=== PATIENT | female | born 1970 | race Caucasian/White ===

== ENCOUNTER 2018-09-25 18:01 | Emergency (ER) | payer BC, OTHER ==
[2018-09-25 18:22] VITALS: BP 158/92
[2018-09-25] MEDS ORDERED: Amoxicillin/Clavulanate TAB* 875 MG PO ONE (19:03)
--- NOTE | 2018-09-25 19:03 | UC ---
Bite Injury/Animal HPI - HPI Summary HPI Summary: lateral aspects of 4th finger of right hand skin avulsions from being scraped by a dogs tooth---would wash small amount of oozing blood (on Lovenox) - History of Current Complaint Chief Complaint: UCAbdominalPain Stated Complaint: DOG BITE Time Seen by Provider: 09/25/18 18:39 Hx Obtained From: Patient Hx Last Menstrual Period: 09/09; pt undergoing embryo transfer on Thursday ?: No Severity Currently: Mild Severity Initially: Mild Pain Intensity: 1 Pain Scale Used: 0-10 Numeric Onset/Duration: Sudden Onset Type of Bite: Pet Has Animal Been Immunized?: Yes Character: Abrasion/Laceration Aggravating Factor(s): Nothing Alleviating Factor(s): Nothing Associated Signs And Symptoms: Positive: Negative Hx of Bite: Provoked by: - attempting to give him a pill Animal Available for Observation: Yes Animal Control Notified: Yes - Allergies/Home Medications Allergies/Adverse Reactions: Allergies Allergy/AdvReac Type Severity Reaction Status Date / Time No Known Allergies Allergy Verified 09/25/18 18:22 Home Medications: Home Medications Aspirin 81 mg PO 09/25/18 [History] Estradiol [Estrace] 09/25/18 [History] Famotidine [Pepcid] 20 mg PO 09/25/18 [History] Labetalol TAB* [Trandate TAB*] 09/25/18 [History] Levofloxacin TAB* [Levaquin 500 Tab*] 09/25/18 [History] Levothyroxine Sodium [Synthroid] 100 mcg PO 09/25/18 [History] Loratadine [Claritin] 09/25/18 [History] Pnv No.95/Ferrous Fum/Folic AC [ Vitamin Tablet] 09/25/18 [History] Prasterone (Dhea)/Calcium Carb [Dhea 50 mg Tablet] 09/25/18 [History] Progesterone, Micronized [Endometrin] 100 mg 09/25/18 [History] Tacrolimus [Astagraf XL 0.5 MG-] 0.5 mg PO DAILY 09/25/18 [History Confirmed ] predniSONE [Prednisone 5 MG TAB] 10 mg 09/25/18 [History] proGESTerone [Progesterone] 50 mg IM 09/25/18 [History] PMH/Surg Hx/FS Hx/Imm Hx Previously Healthy: No - fertility treatment Endocrine History: Thyroid Disease - Surgical History Surgical History: None - Family History Known Family History: Positive: None - Social History Occupation: Employed Full-time Lives: With Family Alcohol Use: Occasionally Substance Use Type: None Smoking Status (MU): Never Smoked Tobacco Review of Systems All Other Systems Reviewed And Are Negative: Yes Constitutional: Positive: Negative Skin: Positive: Other - small skin abrasion with avulasion lateral aspect og right 4th finger distally Eyes: Positive: Negative ENT: Positive: Negative Respiratory: Positive: Negative Cardiovascular: Positive: Negative Gastrointestinal: Positive: Negative Genitourinary: Positive: Negative Motor: Positive: Negative Neurovascular: Positive: Negative Musculoskeletal: Positive: Negative Neurological: Positive: Negative Psychological: Positive: Negative Is Patient Immunocompromised?: No Physical Exam Triage Information Reviewed: Yes Appearance: Well-Appearing, No Pain Distress, Well-Nourished Vital Signs: Initial Vital Signs Temp 98.5 F 09/25/18 18:13 Pulse 92 09/25/18 18:13 Resp 16 09/25/18 18:13 BP 158/92 09/25/18 18:13 Pulse Ox 97 09/25/18 18:13 Vital Signs Reviewed: Yes Eye Exam: Normal Eyes: Positive: Conjunctiva Clear ENT Exam: Normal ENT: Positive: Normal ENT inspection, Hearing grossly normal. Negative: Trismus , Muffled voice, Hoarse voice Dental Exam: Normal Neck exam: Normal Neck: Positive: Supple, Nontender, No Lymphadenopathy Respiratory Exam: Normal Respiratory: Positive: Chest non-tender, No respiratory distress, No accessory muscle use Cardiovascular Exam: Normal Cardiovascular: Positive: RRR, Pulses Normal, Brisk Capillary Refill Musculoskeletal Exam: Normal Musculoskeletal: Positive: Strength Intact, ROM Intact, No Edema Neurological Exam: Normal Neurological: Positive: Alert, Muscle Tone Normal Psychological Exam: Normal Skin: Positive: Other - avulsion and abrasion lateral aspect of 4th right finger Re-Evaluation - Re-Evaluation First Eval Change: Improved - steri strip and direct pressure controlled bleeding Bite Injury Course/Dx - Course Course Of Treatment: fertility clinic returned call ok for patient to take augmentin patient will wash daily follow with pcp and fertility clinic - Differential Dx/Diagnosis Provider Diagnosis: Dog bite of finger Discharge - Sign-Out/Discharge Documenting (check all that apply): Patient Departure All imaging exams completed and their final reports reviewed: No Studies - Discharge Plan Condition: Stable Disposition: HOME Prescriptions: Amoxicillin/Clavulanate TAB* [Augmentin TAB 875*] 875 mg PO BID #20 tab Patient Education Materials: Animal Bite (ED) Referrals: No Primary Care Phys,NOPCP [Primary Care Provider] - Additional Instructions: follow with your doctor and use antibiotics if approved by the fertility provider - Billing Disposition and Condition Condition: STABLE Disposition: Home
== END 2018-09-25 19:15 | disposition home or self-care (01) ==
LOC: UCEAST 18:01
DX: S61.254A Open bite of right ring finger without damage to nail, initial encounter (principal); Z79.82 Long term (current) use of aspirin; W54.0XXA Bitten by dog, initial encounter; Y92.9 Unspecified place or not applicable
CPT/HCPCS: 99202; A9270-GY; G0463

== ENCOUNTER 2019-01-09 16:33 | Emergency (ER) | payer BC, OTHER ==
--- OUTSIDE RECORDS SUMMARY | 2019-01-09 16:45 | XMS REPORT | Continuity of Care Document ---
:1970 External Reference #:[id number] Author Name CLAIRE Gonsales PNP Address [address] [address] [place] [address] Care Team Providers Name Role Phone Alisha Land ANP-BC Primary Care Physician Unavailable Payers Date Identification Numbers Payment Provider Subscriber Policy Number: [id number] [facility] Plan Minnie Gautam PayID: [id number] [address] [place] [address] Problems Active Problems Provider Date Essential hypertension CLAIRE Gonsales, PNP Onset: 06/28/2018 Polycystic ovaries CLAIRE Gonsales, PNP Onset: 06/28/2018 Female infertility CLAIRE Gonsales, AMNA Onset: 06/28/2018 Vitamin D deficiency CLAIRE Gonsales, PNP Onset: 06/28/2018 Sprain of lateral collateral ligament of CLAIRE Gonsales, AMNA Onset: 06/28 right knee, subsequent encounter Family History Date Family Member(s) Observation Comments Father Heart Disease Mother due to Lung Cancer () Social History Type Date Description Comments Sex Unknown Marital Status Legal Status: Lives With Spouse Smoke-Free Home is smoke-free Pets 1 dog Pets Horse Occupation Senior Sustainability Consultant ETOH Use Occasionally consumes alcohol Tobacco Use Start: Unknown Patient has never smoked Recreational Drug Use Denies Drug Use Allergies, Adverse Reactions, Alerts Description No Known Drug Allergies Medications Active Medications SIG Qnty Indications Ordering Provider Date Azithromycin 1 by mouth 5tabs J06.9 Alisha Land, 12/06/2018 500mg every day AMNA RANGEL Tablets Levothyroxine Sodium 1 by mouth 90tabs Alisha Land, 06/28/2018 every day AMNA RANGEL 125mcg Tablets Labetalol HCL take one tablet 180tabs Alisha Land, 04/17/2018 200mg by mouth twice ANP-BC, PNP Tablets a day Tylenol Extra Strength 2 tab by mouth Unknown every 6 hours 500mg Tablets as needed Coricidin HBP 2 by mouth Unknown 10-325-2mg every day as Tablets needed Robitussin Nightime 20 ml by mouth Unknown Coughdm Maximum every 6 hours Strength as needed 3.125-7.5mg/5ML Liquid History Medications Metformin HCL ER 3 by mouth every PM 90tabs Alisha Land, 06/28/2018 - ANP-BC, PNP 12/06/2018 500mg Tablets ER 24HR Prednisone 1 by mouth bid 30tabs Alisha Land, 06/28/2018 - 10mg ANP-BC, PNP 12/06/2018 Tablets Lovenox SC daily Alisha Land, 06/28/2018 - 30mg/0.3ML ANP-BC, PNP 12/06/2018 Solution Aspirin Adult Low 1 by mouth every day 90tabs Alisha Land, 06/28/2018 - Dose ANP-BC, PNP 12/06/[address] Pulido 2mg intravaginally bid Alisha Land, 06/28/2018 - 2mg Tablets ANP-BC, PNP 12/06/2018 4.5 MG 1 po hs Alisha Land, 06/28/2018 - Tab ANP-BC, PNP 06/28/2018 Naltrexone daily Alisha Land, 06/28/2018 - 4.5mg ANP-BC, PNP 12/06/2018 Omnitrope 0.33 mg SC daily Alisha Land, 06/28/2018 - 5mg/1.5ML ANP-BC, PNP 12/06/2018 Solution Claritin 1 by mouth every day 30tabs Alisha Land, 06/28/2018 - 10mg ANP-BC, PNP 12/06/2018 Tablets Vital Signs Date Vital Result Comment 12/06/2018 8:03am BP Systolic 128 mmHg BP Diastolic 70 mmHg Heart Rate 92 /min Body Temperature 102.8 F Respiratory Rate 16 /min O2 % BldC Oximetry 98 % Weight 207.50 lb Weight 94.122 kg Height 67 inches 5'7" BMI (Body Mass Index) 32.5 kg/m2 BSA (Body Surface Area) 2.05 m2 06/28/2018 8:10am BP Systolic 126 mmHg BP Diastolic 84 mmHg Heart Rate 74 /min Body Temperature 98.5 F Respiratory Rate 16 /min O2 % BldC Oximetry 96 % Weight 212.38 lb Weight 96.333 kg Height 67 inches 5'7" BMI (Body Mass Index) 33.3 kg/m2 BSA (Body Surface Area) 2.07 m2 Results Test Date Facility Test Result H/L Range Note Xray 12/07/2018 [facility] Radiology MRI Lower Ext <pending> [address] [facility] [address] [place] [address] Contrast RT [phone] Laboratory test 12/06/2018 In Office Inhouse Rapid Negative finding Strep Procedures Date Code Description Status 06/28/2018 49789 Brief Emotional/Behav Assessment W/ Scoring Doc Per Completed Standard Inst Encounters Type Date Location Provider Dx Diagnosis Office Visit 12/06/2018 [facility] Alisha Land, J06.9 Acute upper 8:00a Center CLAIRE, PNP respiratory infection, unspecified J02.9 Acute pharyngitis, unspecified R50.9 Fever, unspecified S83.421D Sprain of lateral collateral ligament of right knee, subs M25.561 Pain in right knee Plan of Treatment Future Appointment(s):01/05/2019 11:00 am - CLAIRE Gonsales, PNP at [facility]12/06/2018 - CLAIRE Gonsales, PNPJ06.9 Acute upper respiratory infection, unspecifiedNew Medication:Azithromycin 500 mg - 1 by mouth every dayComments:Based on s/s, anterior chest heaviness, productive cough, fever, SOB, possibly pneumonia, will send for CXRWill notify pt when results available.Start with Zithromax 500 mg daily x 5 days, may need to extend that depending on CXR Out of work 12/08-12/10, encouraged deep breathing and coughing at least 3x dayFU 1 parhrK56.9 Acute pharyngitis, ohmsmawplzwI71.9 Fever, ffoedejcayyX79.421D Sprain of lateral collateral ligament of right knee, subsequFollow up:FU 1 lbrqiK14.561 Pain in right knee
--- OUTSIDE RECORDS SUMMARY | 2019-01-09 16:45 | XMS REPORT | Continuity of Care Document ---
:1970 External Reference #:[id number] Author Name CLAIRE Gonsales PNP Address [address] [address] [place] [address] Care Team Providers Name Role Phone Alisha Land ANP-BC Primary Care Physician Unavailable Payers Date Identification Numbers Payment Provider Subscriber Policy Number: [id number] [facility] Plan Minnie Gautam PayID: [id number] [address] [place] [address] Problems Active Problems Provider Date Essential hypertension CLAIRE Gonsales, PNP Onset: 06/28/2018 Polycystic ovaries CLAIRE oGnsales, PNP Onset: 06/28/2018 Female infertility CLAIRE Gonsales, AMNA Onset: 06/28/2018 Vitamin D deficiency CLAIRE Gonsales, PNP Onset: 06/28/2018 Sprain of lateral collateral ligament of CLAIRE Gonsales, PNP Onset: 06/28 right knee, subsequent encounter Family History Date Family Member(s) Observation Comments Father Heart Disease Mother due to Lung Cancer () Social History Type Date Description Comments Sex Unknown Marital Status Legal Status: Lives With Spouse Smoke-Free Home is smoke-free Pets 1 dog Pets Horse 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 ETOH Use Occasionally consumes alcohol Tobacco Use Start: Unknown Patient has never smoked Recreational Drug Use Denies Drug Use Allergies, Adverse Reactions, Alerts Description No Known Drug Allergies Medications Active Medications SIG Qnty Indications Ordering Date Provider Levocetirizine 1 by mouth 30tabs J30.9 Alisha Land, 01/05/2019 Dihydrochloride every day AMNA RANGEL 5mg Tablets Levothyroxine Sodium 1 by mouth 90tabs Alisha Land, 06/28/2018 125mcg every day ANP-BC, PNP Tablets Labetalol HCL take one 180tabs Alisha Land, 04/17/2018 200mg Tablets [facility] mouth twice a day Tylenol Extra Strength 2 tab by mouth Unknown 500mg every 6 hours Tablets as needed Benadryl Allergy 2 by mouth as Unknown 25mg Tablets needed History Medications Azithromycin 1 by mouth every day 5tabs J06.9 Alisha Land, 12/06/2018 - 500mg [facility], PNP 01/05/2019 Tablets Claritin 1 by mouth every day 30tabs Alisha Land, 06/28/2018 - 10mg Tablets [facility]-, PNP 12/06/2018 Omnitrope 0.33 mg SC daily Alisha Land, 06/28/2018 - 5mg/1.5ML [facility], PNP 12/06/2018 Solution Naltrexone daily Alisha Land, 06/28/2018 - 4.5mg [facility], PNP 12/06/2018 4.5 MG 1 po hs Alisha Land, 06/28/2018 - Tab [facility], PNP 06/28/2018 Estrace 2mg intravaginally Alisha Land, 06/28/2018 - 2mg Tablets bid [facility], PNP 12/06/2018 Aspirin Adult Low 1 by mouth every day 90tabs Alisha Land, 06/28/2018 - Dose [facility], PNP 12/06/[address] [place] daily Alisha Land, 06/28/2018 - 30mg/0.3ML [facility], PNP 12/06/2018 Solution Prednisone 1 by mouth bid 30tabs Alisha Land, 06/28/2018 - 10mg [facility], PNP 12/06/2018 Tablets Metformin HCL ER 3 by mouth every PM 90tabs Alisha Land, 06/28/2018 - ANP-BC, PNP 12/06/2018 500mg Tablets ER 24HR Coricidin HBP 2 by mouth every day Unknown - as needed 01/05/2019 10-325-2mg Tablets Robitussin Nightime 20 ml by mouth every Unknown - Coughdm Maximum 6 hours as needed 01/05/2019 Strength 3.125-7.5mg/5ML Liquid Vital Signs Date Vital Result Comment 01/05/2019 11:05am BP Systolic 118 mmHg BP Diastolic 74 mmHg Heart Rate 84 /min Body Temperature 98.2 F Respiratory Rate 16 /min O2 % BldC Oximetry 98 % Weight 206.12 lb Weight 93.498 kg Height 67 inches 5'7" BMI (Body Mass Index) 32.3 kg/m2 BSA (Body Surface Area) 2.05 m2 12/06/2018 8:03am BP Systolic 128 mmHg BP [...] Date Facility Test Result H/L Range Note Laboratory test 12/06/2018 In Office Inhouse Rapid Negative finding Strep Procedures Date Code Description Status 06/28/2018 85992 Brief Emotional/Behav Assessment W/ Scoring Doc Per Completed Standard Inst Encounters Type Date Location Provider Dx Diagnosis Office Visit 01/05/2019 [facility] Alisha Land, J15.8 Pneumonia due to 11:00a [place] ANP-BC, PNP other specified bacteria S83.421D Sprain of lateral collateral ligament of right knee, subs S83.203D Oth tear of unsp meniscus, current injury, right knee, subs J30.9 Allergic rhinitis, unspecified Plan of Treatment 01/05/2019 - CLAIRE Gonsales, PNPJ15.8 Pneumonia due to other specified bacteriaComments:Pneumonia resolvingFollow up:FU 6 months, will callS83.421D Sprain of lateral collateral ligament of right knee, subsequent qgamywfcnS44.203D Other tear of unspecified meniscus, current injury, right knee , subsequent encounterComments:Referred to Dr Joe MEDINA, awaiting aptJ30.9 Allergic rhinitis, unspecifiedNew Medication:Levocetirizine Dihydrochloride 5 mg - 1 by mouth every day
[2019-01-09 16:56] VITALS: BP 146/86
--- NOTE | 2019-01-09 17:02 | UC ---
Eye Complaint HPI - HPI Summary HPI Summary: Pt has URI symptoms which she caught from her . Today she has a red left eye with pus drainage. No visual changes. - History of Current Complaint Chief Complaint: UCGeneralIllness Stated Complaint: L EYE COMP/COLD SYMP Time Seen by Provider: 01/09/19 16:43 Hx Obtained From: Patient Hx Last Menstrual Period: unknown - irregular cycles ?: No Onset/Duration: Gradual Onset Timing: Constant Severity Initially: Mild Severity Currently: Mild Pain Intensity: 0 Location of Injury: Other - No injury Aggravating Factor(s): Nothing Alleviating Factor(s): Nothing Associated Signs And Symptoms: Positive: Drainage (Purulent) - Allergies/Home Medications Allergies/Adverse Reactions: Allergies Allergy/AdvReac Type Severity Reaction Status Date / Time No Known Allergies Allergy Verified 01/09/19 16:57 PMH/Surg Hx/FS Hx/Imm Hx Previously Healthy: Yes Cardiovascular History: Hypertension - Surgical History Surgical History: None - Family History Known Family History: Positive: None - Social History Alcohol Use: Occasionally Substance Use Type: None Smoking Status (MU): Never Smoked Tobacco Review of Systems All Other Systems Reviewed And Are Negative: Yes Eyes: Positive: Drainage, Eye Redness - Left eye ENT: Positive: Nasal Discharge - Mild runny nose Respiratory: Positive: Negative - Just recently had pneumonia which resolved with treatment. Is Patient Immunocompromised?: No Physical Exam Triage Information Reviewed: Yes Appearance: Well-Appearing, No Pain Distress, Well-Nourished Vital Signs: Initial Vital Signs Temp 97.7 F 01/09/19 16:47 Pulse 99 01/09/19 16:47 Resp 16 01/09/19 16:47 BP 146/86 01/09/19 16:47 Pulse Ox 100 01/09/19 16:47 Vital Signs Reviewed: Yes Eyes: Positive: Conjunctiva Inflamed, Discharge - Left sclera and conjunctiva injected with yellow pus drainage present. EOMI, PERRLA ENT: Positive: Hearing grossly normal, Pharynx normal, Nasal drainage, TMs normal, Uvula midline Neck: Positive: Supple, Nontender, No Lymphadenopathy Respiratory: Positive: Lungs clear, Normal breath sounds, No respiratory distress, No accessory muscle use Cardiovascular: Positive: RRR, No Murmur, Pulses Normal, Brisk Capillary Refill Musculoskeletal Exam: Normal Neurological Exam: Normal Psychological Exam: Normal Skin Exam: Normal Eye Complaint Course/Dx - Course Course Of Treatment: Comfortable here - Differential Dx/Diagnosis Provider Diagnosis: Left conjunctivitis, URI (upper respiratory infection) Discharge - Sign-Out/Discharge Documenting (check all that apply): Patient Departure All imaging exams completed and their final reports reviewed: No Studies - Discharge Plan Condition: Fair Disposition: HOME Prescriptions: Tobramycin 0.3% OPHTH.ANANT* 1 drop LEFT EYE Q4H 7 Days #1 btl Patient Education Materials: Upper Respiratory Infection (DC), Conjunctivitis ( ED) Referrals: Non Staff,Doctor [Primary Care Provider] - Additional Instructions: Follow up with an ophthamoloigst if no improvement in 2-3 days. Good handwashing. - Billing Disposition and Condition Condition: FAIR Disposition: Home - Attestation Statements Provider Attestation: I was available for consult. This patient was seen by the TIMO. The patient was not presented to , seen by or examined by wy -Osmany Delgado MD
== END 2019-01-09 17:13 | disposition home or self-care (01) ==
LOC: UCCORT 16:33
DX: H10.9 Unspecified conjunctivitis (principal); J06.9 Acute upper respiratory infection, unspecified; I10 Essential (primary) hypertension
CPT/HCPCS: 99212; G0463

== ENCOUNTER 2020-11-16 20:42 | Observation (INO) ==
[2020-11-16] MEDS ORDERED: NS 0.9% 1000 ml BAG 1,000 ML IV ONE (23:57)
[2020-11-16] MEDS ORDERED: Ondansetron 4 mg VIAL 2 MG/ML 2 ml VIAL IV ONE (23:57)
[2020-11-17 00:27] LABS: ABS Basophils 0.1 10^3/ul (0-0.2); ABS Lymphocytes 1.1 10^3/ul (1.0-4.8); ABS Monocytes 1.4 10^3/ul (0-0.8); Hematocrit 41 % (35-47); Hemoglobin 14.1 g/dL (12.0-16.0); Lymphocyte % 6.4 %; Mean Corpuscular HGB Conc 35 g/dL (31-36); Mean Corpuscular Hemoglobin 32 pg (27-31); Mean Corpuscular Volume 92 fL (80-97); Mean Platelet Volume 8.5 fL (7.4-10.4); Platelet Count 259 10^3/uL (150-450); Red Blood Count 4.45 10^6 /uL (3.70-4.87); Red Cell Distribution Width 13 % (10-15); White Blood Count 17.5 10^3/uL (3.5-10.8)
[2020-11-17 00:40] LABS: Urine Appearance Clear; Urine Bilirubin Negative (Negative); Urine Blood 2+ (Negative); Urine Color Amber; Urine Glucose Negative (Negative); Urine Ketones 2+ (Negative); Urine Nitrite Negative (Negative); Urine Protein 1+(30 mg/dL) (Negative); Urine Specific Gravity 1.025 (1.002-1.030); Urine Urobilinogen Negative (Negative)
[2020-11-17 00:45] LABS: Albumin 4.2 g/dL (3.2-5.2); Albumin/Globulin Ratio 1.4 (1-3); C Reactive Protein 100.92 mg/L (<8.01); EGFR African American 96.8 (>60); Globulin 2.9 g/dL (2-4); Magnesium 1.7 mg/dL (1.9-2.7); Potassium 3.7 mmol/L (3.5-5.0); Total Bilirubin 1.1 mg/dL (0.2-1.0); Total Protein 7.1 g/dL (6.4-8.9)
[2020-11-17 00:52] LABS: HCG Pregnancy 3.62 mIU/mL; Urine Bacteria Absent (Absent); Urine Red Blood Cell Trace(0-2/hpf) (Absent); Urine Squamous Epithelial Cell Present (Absent); Urine White Blood Cell Trace(0-5/hpf) (Absent)
[2020-11-17] MEDS ORDERED: Iohexol 300 (CONTRAST) 10 ML SDV IV ONE (02:23)
[2020-11-17] MEDS ORDERED: Piperacillin/Tazobac ADVAN 3.375 GM in NS 0.9% 100 ml BAG 100 ML IV ONE (03:45)
[2020-11-17] MEDS ORDERED: Ondansetron 4 mg VIAL 2 MG/ML 2 ml VIAL IV PRN (04:59)
[2020-11-17] MEDS ORDERED: NS 0.45% 1000 ml BAG 1,000 ML IV SCH (06:00)
[2020-11-17] MEDS ORDERED: Propofol 10 MG/ML 20 ML BTL ONE (07:40)
[2020-11-17] MEDS ORDERED: Lidocaine 2% PF 5 ML VIAL ONE (07:40)
[2020-11-17] MEDS ORDERED: fentaNYL 100 mcg/2 ml 50 MCG/ML VIAL ONE (07:41)
[2020-11-17] MEDS ORDERED: Rocuronium 50 mg VIAL 10 mg/ml 5 ml VIAL (50 mg) ONE (07:41)
[2020-11-17] MEDS ORDERED: Midazolam 2 mg/2 ml VIAL 1 mg/ml 2 ml VIAL (2 mg) ONE (07:41)
[2020-11-17] MEDS ORDERED: Succinylcholine 200 mg VIAL 20 mg/ml 10 ml VIAL (200 mg) ONE (07:41)
[2020-11-17] MEDS ORDERED: Bupivacaine 0.25% EPI 200,000 30 ML SDV ONE (08:05)
[2020-11-17] MEDS ORDERED: fentaNYL 100 mcg/2 ml 50 MCG/ML VIAL IV PRN (09:07)
[2020-11-17] MEDS ORDERED: Naloxone 0.4 mg VIAL 0.4 mg/ml 1 ml VIAL IV PRN (09:07)
[2020-11-17] MEDS ORDERED: DiMENhydriNATE IV 50 mg/ml 1 ml VIAL IV PUSH PRN (09:07)
[2020-11-17] MEDS ORDERED: Ondansetron 4 mg VIAL 2 MG/ML 2 ml VIAL ONE (09:09)
[2020-11-17] MEDS ORDERED: Dexamethasone IV 4 MG/ML VIAL 1 ml VIAL ONE (09:09)
[2020-11-17] MEDS ORDERED: ACETAMINOPHEN 1 GM/100 ML ONE (09:09)
[2020-11-17] MEDS: Piperacillin/Tazobactam VIAL 3.375 GM in NS 0.9% 100 ml BAG 100 ML IVPB SCH ×3 (10:47→23:31)
[2020-11-17] MEDS ORDERED: HYDROmorphone 0.5 MG/0.5 ML SYRINGE IV SLOW PU PRN (13:38)
[2020-11-18 06:48] LABS: ABS Lymphocytes 1.7 10^3/ul (1.0-4.8); ABS Monocytes 1.1 10^3/ul (0-0.8); Eosinophil % 0.1 %; Hematocrit 34 % (35-47); Hemoglobin 11.7 g/dL (12.0-16.0); Lymphocyte % 10.7 %; Mean Corpuscular HGB Conc 34 g/dL (31-36); Mean Corpuscular Hemoglobin 32 pg (27-31); Mean Corpuscular Volume 93 fL (80-97); Mean Platelet Volume 8.7 fL (7.4-10.4); Platelet Count 210 10^3/uL (150-450); Red Blood Count 3.71 10^6 /uL (3.70-4.87); Red Cell Distribution Width 13 % (10-15); White Blood Count 15.9 10^3/uL (3.5-10.8)
[2020-11-18] MEDS: Piperacillin/Tazobactam VIAL 3.375 GM in NS 0.9% 100 ml BAG 100 ML IVPB SCH (07:50)
[2020-11-18 07:57] VITALS: BP 120/65
== END 2020-11-18 10:35 | disposition home or self-care (01) ==
LOC: ED 20:42 → OR 11-17 05:08 → SSU 11-17 05:08
PROVIDERS: ADMIT Surgery; ATTEND Surgery